=== PATIENT | male | born 1960 | race Caucasian/White ===

== ENCOUNTER → 2019-04-27 | Outpatient (CLI) | payer OTHER ==
[~2019-04-27] VITALS: Ht 180.3 cm; Wt 140.6 kg
[~2019-04-27] MED LIST: ADDERALL 30 MG30 MG PO; CALAN80 MG PO; METFORMIN HCL500 MG PO; NEURONTIN 300M300 M2 PO; REQUIP 1 MG TABL1 M1 PO; VITAMIN D5000 UNIT PO; XIGDUO XR 10 M1 EAC1 PO
[2019-04-27 09:58] VITALS: BP 154/82
--- NOTE | 2019-04-27 14:31 | EKG ---
[address] [place] [address] ELECTROCARDIOGRAM REPORT Name: IMELDA AYOUB Room #: REG KAYE Armstrong#: [id number] Admission: 04/27/19 Attend Phys: José Manuel Valenzuela Discharge: Date of : 64 Report #: [id number] THIS REPORT FOR: //name// [facility] Test Date: 2019-04-27 Test Time: 10:01:13 Pat Name: IMELDA AYOUB Department: Room: Gender: Installment Account Checker: Jay DOZIER : 1960 Requested By: José Manuel Valenzuela Order Number: [id number] MD: Milton Bird Measurements Intervals [place] Rate: 89 P: 36 PA: 152 QRS: 28 QRSD: 94 T: 62 QT: 352 QTc: 429 Interpretive Statements Sinus rhythm Normal tracing No previous ECG available for comparison Electronically Signed On 04-27-2019 14:31:03 CDT by Milton Bird [email or web address] <ELECTRONICALLY SIGNED> By: Milton Bird MD, [facility] 04/27/19 1431 1001 1001 Milton Bird MD, FACC /EPI
--- NOTE | 2019-05-09 16:04 | CATHLAB ---
[facility] [address] [place] [address] INVASIVE PROCEDURE REPORT Name: IMELDA AYOUB Room #: [id number] Admission: 04/27/19 Attend Phys: José Manuel Chappell Discharge: Date of : 64 Date of Service: 05/09/19 1604 Report #: [id number] THIS REPORT FOR: //name// APPROVED REPORT Study performed: 04/27/2019 10:59:10 Patient Details The patient is a 58 year-old male Event Personnel José Manuel Valenzuela Shipwright Helper, Fletcher Regalado RN RN, , Kinsey Mendoza RTR, LIZA Scrub, Jaimie Castillo RTR Scrub, Jayden Blanco RTR Monitor Procedures Performed Left Heart Catheterization, supervision of conscious sedation Indication Chest pain Procedure Narrative The Right Groin^ was infiltrated with 1% Lidocaine subcutaneous anesthesia. A PINNACLE 4FR Sheath #[id number] sheath was inserted into the RFA^. Coronary angiography was performed using coronary diagnostic catheters. The right coronary system was accessed and visualized with a JR4 catheter. The left coronary system was accessed and visualized with a JL5 catheter. The left ventricle was accessed and visualized with a PIGTAIL catheter. Closure device was deployed with a Fr 6F MYNX. The patient tolerated the procedure well and there were no complications associated with the procedure. There was no hematoma. Intraoperative Conscious Sedation Sedation start time: 1125 Case end Time: 1151 Versed 3 mg Fluoro Time: 2.43 minutes Dose: DAP 7337.50 cGycm2 802 mGy Contrast Type and Amount: Omnipaque 50 ml Coronary Angiography The patient's coronary anatomy is right dominant. [facility] [address] [place] [address] INVASIVE PROCEDURE REPORT Name: IMELDA AYOUB Room #: REG [facility].#: [id number] Admission: 04/27/19 Attend Phys: José Manuel Chappell Discharge: Date of : 64 Date of Service: 05/09/19 1604 Report #: [id number] Diagnostic Cath Left Main Normal origin and caliber triifurcates that into left anterior descending, left circumflex, ramus intermedius. No high-grade lesions are noted LAD Moderate caliber type I vessel which courses in the anterior interventricular sulcus QRSs septal and diagonal branches free of high-grade disease. Terminates well above the apex without high-grade lesions is a small-caliber vessel Diagonal 1 Small-caliber vessel without significant obstructive lesions noted as it courses along the anterolateral wall Circumflex Moderate caliber vessel arising from left main and courses in the AV groove posteriorly giving rise to marginal branch and a posterior wall branches all of which are free of high-grade disease OM1 Motor caliber vessel without significant obstructive lesions Right Coronary Moderate caliber vessel of normal origin. Has a gardner's crook deformity proximally as it courses in the AV groove posteriorly. It gives rise to a small-caliber posterior descending artery with only luminal irregularities noted. The distal circulation consists of multiple small branches which appear to have irregularities noted R PDA Ocular vessel without significant high-grade lesions present Ramus To large caliber vessel arising in proceeding on the lateral aspect of the heart without high-grade lesions noted it rapidly tapers towards its terminus without significant blockages noted Left Ventriculography Left Ventriculography was not performed. Hemodynamics The aortic pressure is 146/90 mmHg with a mean of 112 mmHg. The left ventricular pressure is 138/13 mmHg with a mean of mmHg. The left ventricular end diastolic pressure is 20 mmHg. Conclusion 1. Minimal coronary disease essentially normal with luminal irregularities of the distal right coronary artery 2. Normal hemodynamics Recommendations [facility] [address] [place] [address] INVASIVE PROCEDURE REPORT Name: IMELDA AYOUB Room #: REG [facility]#: [id number] Admission: 04/27/19 Attend Phys: José Manuel Chappell Discharge: Date of : 64 Date of Service: 05/09/19 1604 Report #: [id number] Cardiac Risk Reduction Program Medical Therapy <ELECTRONICALLY SIGNED> By: José Manuel Valenzuela MD 05/09/19 1604 160 1604 José Manuel Valenzuela MD /INF
== END | disposition home or self-care (01) ==
LOC: CATH 09:37
DX: I25.10 Atherosclerotic heart disease of native coronary artery without angina pectoris (principal); I10 Essential (primary) hypertension; E11.9 Type 2 diabetes mellitus without complications; G47.33 Obstructive sleep apnea (adult) (pediatric); K21.9 Gastro-esophageal reflux disease without esophagitis; E66.09 Other obesity due to excess calories; Z91.040 Latex allergy status; Z87.19 Personal history of other diseases of the digestive system; Z88.0 Allergy status to penicillin; Z79.899 Other long term (current) drug therapy; Z98.890 Other specified postprocedural states

== ENCOUNTER 2019-06-01 10:38 | Inpatient (IN) | payer OTHER ==
[~2019-06-01] VITALS: Ht 180.3 cm; Wt 144.2 kg
[2019-06-01] VITALS (11 sets, daily range): BP systolic 101–127; BP diastolic 57–71
[2019-06-01 11:48] LABS: ABSOLUTE NEUTROPHILS 4.2 thou/uL (1.4-8.2); BASOPHILS 0.9 % (0.0-2.0); CALCIUM 9.5 mg/dL (8.5-10.1); CREATININE 1.1 mg/dL (0.7-1.3); EOSINOPHILS 6.4 % (0.0-3.0); HEMATOCRIT 42.2 % (42.0-52.0); HEMOGLOBIN 14.2 gm/dL (14.0-18.0); LYMPHOCYTES 21.2 % (24.0-44.0); MCH 29.4 pg (26.0-34.0); MCHC 33.7 g/dL (28.0-37.0); MCV 87.3 fL (80.0-100.0); MONOCYTES 6.4 % (1.0-8.0); PLATELET COUNT 328 thou/uL (150-400); POLYS 65.1 % (36.0-66.0); POTASSIUM 4.5 mmol/L (3.5-5.1); RBC 4.83 mil/uL (4.50-6.00); RDW 14.8 % (10.5-14.5); WBC 6.5 thou/uL (4.0-11.0)
[2019-06-01 11:52] LABS: APTT 28.1 Seconds (24.5-32.8); PROTIME 9.6 Seconds (9.3-11.4)
[2019-06-01 11:54] LABS: ALBUMIN 3.9 g/dL (3.4-5.0); TOTAL BILIRUBIN 0.3 mg/dL (<0.1-1.0); TOTAL PROTEIN 7.2 g/dL (6.4-8.2)
[2019-06-01] MEDS ORDERED: METFORMIN HCL1000 MG PO (11:57)
[2019-06-01] MEDS ORDERED: ROPINIROLE HCL2 MG PO (11:58)
[2019-06-01] MEDS ORDERED: ERGOCALCIF50000 UNIT PO (12:00)
[2019-06-01] MEDS ORDERED: ZANTAC 150MG T150 MG PO (12:01)
--- NOTE | 2019-06-01 23:26 | NUR ---
PT VERY INSISTENT ON NEEDING TO GET UP AND SIT ON EDGE OF BED TO PEE. SAYS HE CANNOT DO IT LAYING IN THE BED. EXPLAINED THAT NEED TO BE MORE CAUTIOUS BECAUSE LEFT GROIN SITE IS OOZING SOME WHICH HAS BEEN OUTLINED AND HELP PRESSURE TWICE. SITE REMAINS SOFT. HE AGREED HE WOULD JUST SIT ON EDGE OF BED BUT PT FOUND TO END UP STANDING ON SIDE OF BED, I DISCUSSED ALL THE COMPLICATIONS THAT COULD HAPPEN AND HE SEEMS TO BE NONCOMPLIANT AND NOT BE WORRIED ABOUT THAT. WILL KEEP MONITORING SITE. PT NOW BACK IN BED AND UPSET.
[2019-06-02] VITALS (10 sets, daily range): BP systolic 92–124; BP diastolic 59–68
--- NOTE | 2019-06-02 04:51 | NUR ---
PT APPEARS TO BE SLEEPING/RESTING WELL. PT REMAINS SR W/PACs AND SOFT BPs WHICH PT STATES IS TYPICAL FOR HIM. PT GROIN SITES HIRO SOFT. LEFT SITE HAS BEEN OOZING TONIGHT PINK TINGED DRAINAGE AND PRESSURE HAS BEEN APPLIED SEVERAL TIMES. PT REQUIRED ONE DOSE OF PAIN MEDS SO FAR. PT HAS BEEN AFEBRILE. PT TO POSSIBLY D/C HOME TODAY.
--- NOTE | 2019-06-02 07:50 | NUR ---
0700-Pt is alert, oriented x 4. O2 Sat 98% w/ NC on 2L of o2. SR on monitor. Edema +1 on LE. Groin site neeru, soft. No hematoma. Dressings are in place. SCDs in place. Urinal at bedside. 0730-BS 170. Pt's spouse came in 0740 w/ food from [employer]. This nurse educated pt and spouse re visiting guidelines including visiting hrs and food from outside. Pt and the spouse were upset re the guidelines but accepted.
--- NOTE | 2019-06-02 11:03 | NUR ---
Discharge note; Pt is discharged home. Pt ate breakfast 100% in addition to the food his spouse brought from [place]. Discharge instructions (diet, activity, incision care, F/U, and medication) were reviewed with patient and spouse. Pt and the spouse verbalized understanding. Pt's belonings were returned to pt. IV was discontinued by this nurse. Pt was taken out to lobby by this nurse via W/C.
--- NOTE | 2019-06-02 22:51 | D ---
[facility] [place] [address] DISCHARGE SUMMARY Name: IMELDA AYOUB Room #: 244-P [facility] IN M.R.#: [id number] Admission: 06/01/19 Attend Phys: Royce Ayala MD Discharge: 06/02/19 Date of : 64 Report #: [id number] THIS REPORT FOR: //name// CC: Anjali Ayala DATE OF SERVICE: 06/02/2019 FINAL DIAGNOSES: 1. Status post ablation for atrioventricular ge reentry tachycardia. 2. Asthma. 3. Diabetes mellitus. 4. Neuropathy. 5. Obesity. HOSPITAL COURSE: Please see the original H and P for full details. The patient has a history of SVT, intolerant to verapamil. He developed low blood pressure and this medication had to be discontinued. He underwent elective EP study yesterday. 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 He did have issues post-extubation with respiratory issues. He has remained stable overnight in the ICU. Chest x-ray reveals atelectasis. He has been ambulating in the ICU without any issues. The would like a prescription for albuterol, which has been sent to his pharmacy. Otherwise, he remained stable and will follow up with Dr. Ayala. FINAL DISPOSITION: He will continue with Adderall, metformin, Neurontin, Zantac and Requip. <ELECTRONICALLY SIGNED> By: Anupam Maynard MD 06/02/19 2251 0856 1705 Anupam Maynard MD /francisco
--- NOTE | 2019-06-05 17:04 | P ---
[facility] [place] [address] [place] [address] PROCEDURE REPORT Name: IMELDA AYOUB Room #: 244-P [facility] IN M.R.#: [id number] Admission: 06/01/19 Attend Phys: Royce Ayala MD Discharge: 06/02/19 Date of : 64 Report #: [id number] THIS REPORT FOR: //name// CC: Anjali Ayala PREOPERATIVE DIAGNOSIS: Supraventricular tachycardia. POSTOPERATIVE DIAGNOSIS: Typical atrioventricular ge reentrant tachycardia. PROCEDURES PERFORMED: 1. SVT ablation, CPT code 89480. 2. Left atrial pacing and recording, CPT code 00628. 3. Programmed stimulation and pacing after IV drug infusion, CPT code 27633. 4. A 3D mapping, CPT code 11633. HISTORY OF PRESENT ILLNESS: The patient is a 58-year-old male with history of documented SVT here for an ablation. ANESTHESIA: The patient initially underwent MAC anesthesia, but due to excessive snoring, was transitioned over to general anesthesia. He had some difficulty getting extubated post-ablation due to obesity and sedation. Otherwise, there were no complications. DESCRIPTION OF PROCEDURE: The patient underwent informed consent. We discussed the details of the procedure including the risks, which include but not limited to bleeding, vascular damage, cardiac perforation as well as stroke or ND. He understood these risks and is willing to proceed. The patient was brought to the EP laboratory in a fasting and sedated state, prepped and draped in a sterile fashion. I obtained access to the right femoral vein x 3, placing ____ 6 and 7-[place] short sheath in the right femoral vein. In the left femoral vein, I placed a 6-[place] short sheath. Next, under fluoroscopy, I placed 3 quadripolar catheters at the HRA, His and RV positions and a decapolar catheter easily in the coronary sinus. Next, a basic EP study was performed. At baseline, the patient was in sinus rhythm with a sinus cycle length was 965 milliseconds, AZ interval 195 milliseconds, QRS duration 110 milliseconds, QT interval 40 milliseconds, AH interval 100 milliseconds, HV interval 35 milliseconds. Next, atrial pacing was performed both in the right and left atrium. Atrial pacing and recording was performed from the coronary sinus catheter in the left atrium. AV block was noted at 360 milliseconds. Atrial ERP was noted at 330 milliseconds at [address] cycle length. Of note, there was a long AH interval suggestive of a slow pathway. Next, double atrial extrastimuli were delivered and no SVT was induced. Ventricular pacing was performed and VA conduction was both midline and decremental. [facility] [address] [place] [address] PROCEDURE REPORT Name: IMELDA AYOUB Room #: 244-P [facility] IN M.R.#: [id number] Admission: 06/01/19 Attend Phys: Royce Ayala MD Discharge: 06/02/19 Date of : 64 Report #: [id number] block was noted at 340 milliseconds and VERP was noted at 310 milliseconds at a [address] cycle length. Next, isoproterenol infusion was initiated at 2 mcg per minute and with atrial burst pacing, the patient went into SVT, tachycardia cycle length 370 milliseconds, the septal VA time of 35 milliseconds and this terminated after 8 beats. Atrial ERP was noted at 220 milliseconds at a [address] cycle length. There were single AV ge echoes noted. Atrial burst pacing again induced a run of AVNRT that lasted 15 beats and terminated with ____. As such, a diagnosis of typical AV ge reentrant tachycardia was made. This looked very similar to what we had seen on his surveillance monitor. 3D MAPPING AND ABLATION: I removed my HRA and short sheath and exchanges for an SR0 sheath and a [employer] Joiner 4 mm ablation catheter. A detailed 3D geometry was created of the His bundle, slow pathway region and coronary sinus ostium. There was a location where I found a nice atrial signal that was consistent with slow pathway region. The ventricular signal was quite small at this region and was not the classic ratio that I would like, but fluoroscopically it looked like I was where I needed to be. I performed 2 initial ablation lesions with no junctionals and then I performed 3 additional ablation lesions where the atrial signal looked perfect. Although there was almost no ventricular signal noted there. These last 3 ablation lesions resulted in nice slow junctionals of about 20 seconds duration on each of the shultz. There was never any compromise to AV ge conduction. As such, post-ablation testing was performed. The patient was initiated immediately on isoproterenol 4 mcg per minute. AV block was noted at 340 milliseconds. Single and double atrial extrastimuli were delivered; I could not induce any AVNRT. Next, isoproterenol was increased to 6 mcg per minute and AV block was noted at 330 milliseconds. AV ge ERP was noted at 310 milliseconds at a [address] cycle length. The patient had a couple single AV ge echoes right before reaching AV ge ERP or atrial ERP. Isoproterenol was turned off and additional pacing was performed as the drugs were off. AV block was noted to be 380 milliseconds. Post-ablation, the patient was in sinus rhythm, sinus cycle length of 680 milliseconds, AZ interval 140 milliseconds, QRS duration 110 milliseconds, QT interval 440 milliseconds. As such, all catheters and sheaths were pulled and hemostasis was obtained. The patient awoke neurologically and hemodynamically intact. No complications and no significant bleeding. CONCLUSIONS: 1. Successful ablation of typical AV ge reentrant tachycardia. 2. Normal SA ge function. 3. Normal AV ge function. [facility] [address] [place] [address] PROCEDURE REPORT Name: IMELDA AYOUB Room #: 244-P [facility] M.R.#: [id number] Admission: 06/01/19 Attend Phys: Royce Ayala MD Discharge: 06/02/19 Date of : 64 Report #: [id number] 4. Normal His-Purkinje function. 5. No other inducible arrhythmias on or off isoproterenol. <ELECTRONICALLY SIGNED> By: Royce Ayala MD 06/05/19 1704 1654 0854 Royce Ayala MD /nt
== END 2019-06-02 10:55 | disposition home or self-care (01) | DRG 274 ==
LOC: CATH 10:38 → ICU 18:57
PROVIDERS: ADMIT Internal Medicine Cardiovascular Disease
PROC: 4A0234Z Measurement of Cardiac Electrical Activity, Percutaneous Approach (ICD-10-PCS; principal; 2019-06-01)
PROC: 4A023FZ Measurement of Cardiac Rhythm, Percutaneous Approach (ICD-10-PCS; principal; 2019-06-01)
PROC: 02583ZZ Destruction of Conduction Mechanism, Percutaneous Approach (ICD-10-PCS; principal; 2019-06-01)
PROC: 02K83ZZ Map Conduction Mechanism, Percutaneous Approach (ICD-10-PCS; principal; 2019-06-01)
DX: I47.1 Supraventricular tachycardia (principal); Z68.41 Body mass index [BMI] 40.0-44.9, adult; J45.909 Unspecified asthma, uncomplicated; E11.40 Type 2 diabetes mellitus with diabetic neuropathy, unspecified; E66.9 Obesity, unspecified; Z79.899 Other long term (current) drug therapy
CPT/HCPCS: 10078; 62110; 62900; 70005